=== PATIENT | male | born 1945 ===

== ENCOUNTER 2020-11-04 18:09 | Emergency (ER) | payer SELFPAY ==
[~2020-11-04] VITALS: Ht 157.5 cm; Wt 88.4 kg
--- NOTE | 2020-11-04 18:18 | NUR ---
ORA RN: PT PLACED IN A C-COLAR AND WC
--- NOTE | 2020-11-04 19:33 | NUR ---
patient in CT when RN in for initial assessment. family member at bedside. will wait for patient return
--- NOTE | 2020-11-04 19:55 | NUR ---
patient speaks [place] as well as daughter. patient prefers daughter to interpret for him at this time. patient was able to answer all questions, including complex questions, with appropriate answers.
--- NOTE | 2020-11-04 20:00 | NUR ---
upper body clothing removed with second staff member to ensure C-spine precautions. also, new c-collar applied by this RN and [employer]. will continue to monitor. VS remain stable
--- NOTE | 2020-11-04 20:06 | NUR ---
NIHSS performed by this RN. score = 0. no printout needed at this time. will continue to monitor. VS remain stable on RA
--- NOTE | 2020-11-04 21:16 | NUR ---
patient resting in bed in NAD. c-collar remains in place. no further needs at this time. daughter remains at bedside. call gutiérrez in reach. VS remain stable on RA
[2020-11-04] MEDS ORDERED: LIDODERM 5% PATCH TD ONE ×2 (21:26→21:30)
--- NOTE | 2020-11-04 21:32 | NUR ---
lidocaine patch applied to right lateral/posterior neck per patient report of pain. patient getting dressed at this time and waiting for dc instructions to be finalized Addendum: 11/04/20 at 2132 by ADOUGHTY c-collar no longer in place and removed by provider
--- NOTE | 2020-11-04 22:01 | NUR ---
discharge instructions reviewed with patient and daughter at bedside. no further questions at this time. prescription handed directly to patient. all personal belongings with patient on departure. no IV placed during this ER visit. steady gait to lobby
[2020-11-04 22:02] VITALS: BP 133/82
== END 2020-11-04 22:05 | disposition home or self-care (01) ==
LOC: ED 18:39
DX: S16.1XXA Strain of muscle, fascia and tendon at neck level, initial encounter (principal); G44.319 Acute post-traumatic headache, not intractable; I10 Essential (primary) hypertension; K21.9 Gastro-esophageal reflux disease without esophagitis; X58.XXXA Exposure to other specified factors, initial encounter; Y93.89 Activity, other specified; Y92.89 Other specified places as the place of occurrence of the external cause; Y99.8 Other external cause status
CPT/HCPCS: 70450; 72125; 99285